=== PATIENT | female | born 1970 | race Caucasian/White ===

== ENCOUNTER 2017-01-24 18:24 | Observation (INO) ==
[2017-01-24] MEDS ORDERED: Aspirin 325 MG TABLET PO ONE (18:41)
--- NOTE | 2017-01-24 19:01 | Emergency Department Note ---
Disposition Clinical Impression: Unstable angina pectoris, Chest pain Disposition: Admitted As Inpatient Condition: Good Referrals: Pebbles Triana [Primary Care Provider] - Forms: ED Satisfaction Letter Time of Disposition: 20:00 Chest Pain HPI - General Chief Complaint: ED Chest Pain Stated Complaint: Chest pain, tingling in face and in left arm Time Seen by Provider: 01/24/17 18:37 Source: patient Limitations: no limitations Vital Signs Reviewed: Yes Nursing Notes Reviewed: Yes - History of Present Illness HPI Narrative: 46-year-old female presents him return for chest pain. Started last night. Intermittent today. Worse this afternoon. Associated nausea but no vomiting. Had some dyspnea and pressure in her chest. She also states the pressure radiates up into her neck and jaw region. She has some tingling feeling over her chest. She also has some pain in her upper back. She does not have a history of coronary disease. No history of any cardiac Or any stress test. No other complaints at this time. Pt complaint: chest pain Onset (ago): day(s) Duration: intermittent Onset: during rest Pain Location: substernal, left chest Severity: moderate Severity scale (1-10): 1 Quality: tightness, aching, heaviness Pain Radiation: back, neck, jaw/teeth Improves with: nothing Worsens with: nothing Associated symptoms: Reports: nausea, dyspnea. Denies: vomiting, diaphoresis, cough Treatments prior to arrival chest pain: none - Related Data Allergies Allergy/AdvReac Type Severity Reaction Status Date / Time No Known Allergies Allergy Verified 01/24/17 18:32 All systems ED: reviewed and negative except as stated. 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: bilateral 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, other - Social History Smoking Status: Never smoker Alcohol use: Reports: none Drug use: Reports: none Physical Exam - General Limitations: no limitations General appearance: alert, in no apparent distress - Head Head exam: atraumatic, normocephalic - Eye Eye exam: Present: normal appearance - ENT ENT exam: normal exam - Chest Chest inspection: Present: normal inspection, symmetric chest wall rise - Respiratory Respiratory exam: Present: normal lung sounds bilaterally - Cardiovascular Cardiovascular exam: Present: regular rate, normal rhythm, normal heart sounds - Abdominal Exam Abdominal exam: Present: soft, Non-Tender, normal bowel sounds - Extremities Exam Extremities exam: Present: normal inspection - Back Exam Back exam: Present: normal inspection - Neurological Exam Neurological exam: Present: alert, oriented X3 - Psychiatric Psychiatric exam: Present: normal affect, normal mood - Skin Skin exam: Present: warm, dry, intact Course Vital Signs Temperature 97.9 F 01/24/17 18:32 Pulse Rate 86 01/24/17 18:32 Respiratory Rate 18 01/24/17 18:32 Blood Pressure 150/90 01/24/17 18:32 O2 Sat by Pulse Oximetry 97 01/24/17 18:32 Temperature 97.9 F 01/24/17 18:32 Pulse Rate 86 01/24/17 18:32 Respiratory Rate 18 01/24/17 18:32 Blood Pressure 150/90 01/24/17 18:32 O2 Sat by Pulse Oximetry 97 01/24/17 18:32 Oxygen Delivery Oxygen Delivery Room Air Chest Pain - Medical Records Medical records reviewed: Yes I reviewed the patient's medical records. - Lab Data Lab results reviewed: Yes I reviewed the patient's lab results. Result diagrams: 01/24/17 19:25 01/24/17 19:25 Lab Results 01/24/17 01/24/17 01/24/17 Range/Units 19:25 19:25 19:25 WBC 9.2 (4.3-11.1) K/mcL RBC 5.16 H (3.82-4.97) M/mcL Hgb 15.9 H (11.5-15.4) g/dL Hct 46.0 H (35.3-44.9) % MCV 89.1 (83.0-100.0) fL MCH 30.8 (28.0-33.3) pg MCHC 34.6 (31.6-35.5) g/dL RDW 12.3 (11.5-14.5) % Plt Count 214 (140-400) K/mcL MPV 10.0 (9.4-12.4) fL Immature Gran % 0.8 (0-4) % Seg Neutrophils % 63.7 % Lymphocytes % 21.9 % Monocytes % 9.7 % Eosinophils % 2.7 % Basophils % 1.2 % Neutrophils # 5.8 (1.6-8.9) K/mcL Lymphocytes # 2.0 (0.6-4.6) K/mcL Monocytes # 0.9 (0.0-1.3) K/mcL Eosinophils # 0.3 (0.0-0.6) K/mcL Basophils # 0.1 (0.0-0.2) K/mcL PT 12.5 H (9.4-12.1) Seconds INR 1.2 APTT 28.8 (26.0-36.0) Seconds Sodium 136 (136-145) mEq/L Potassium 3.6 (3.5-4.5) mEq/L Chloride 97 L (98-109) mEq/L Carbon Dioxide 25 (19-29) mEq/L BUN 9 (7-20) mg/dL Creatinine 0.67 (0.57-1.11) mg/dL Est GFR ( Amer) > 60 (> 60) Est GFR (Non-Af Amer) > 60 (> 60) BUN/Creatinine Ratio 13 (6-26) Glucose 112 H (70-99) mg/dL Calculated Osmolality 281 (280-300) Calcium 10.5 (8.6-10.8) mg/dL Troponin I (0-0.03) ng/mL 01/24/17 Range/Units 19:25 WBC (4.3-11.1) K/mcL RBC (3.82-4.97) M/mcL Hgb (11.5-15.4) g/dL Hct (35.3-44.9) % MCV (83.0-100.0) fL MCH (28.0-33.3) pg MCHC (31.6-35.5) g/dL RDW (11.5-14.5) % Plt Count (140-400) K/mcL MPV (9.4-12.4) fL Immature Gran % (0-4) % Seg Neutrophils % % Lymphocytes % % Monocytes % % Eosinophils % % Basophils % % Neutrophils # (1.6-8.9) K/mcL Lymphocytes # (0.6-4.6) K/mcL Monocytes # (0.0-1.3) K/mcL Eosinophils # (0.0-0.6) K/mcL Basophils # (0.0-0.2) K/mcL PT (9.4-12.1) Seconds INR APTT (26.0-36.0) Seconds Sodium (136-145) mEq/L Potassium (3.5-4.5) mEq/L Chloride (98-109) mEq/L Carbon Dioxide (19-29) mEq/L BUN (7-20) mg/dL Creatinine (0.57-1.11) mg/dL Est GFR ( Amer) (> 60) Est GFR (Non-Af Amer) (> 60) BUN/Creatinine Ratio (6-26) Glucose (70-99) mg/dL Calculated Osmolality (280-300) Calcium (8.6-10.8) mg/dL Troponin I 0.00 (0-0.03) ng/mL - Radiology Data Radiology results reviewed: Yes I reviewed the patient's radiology results. - EKG Data EKG attestation: Yes I reviewed and interpreted this EKG. EKG results narrative: EKG shows a rate of 95. No sinus rhythm. Left axis. WA interval 161. QRS 92. QTC 4:15. PVCs present. No signs of acute ischemia otherwise. EKG shows normal: sinus rhythm
[2017-01-24 19:38] LABS: Basophils # 0.1 K/mcL (0.0-0.2); Basophils % 1.2 %; Eosinophils # 0.3 K/mcL (0.0-0.6); Eosinophils % 2.7 %; Hemoglobin 15.9 g/dL (11.5-15.4); Immature Granulocytes % 0.8 % (0-4); Lymphocytes % 21.9 %; Mean Corpuscular HGB Conc 34.6 g/dL (31.6-35.5); Mean Corpuscular Hemoglobin 30.8 pg (28.0-33.3); Mean Corpuscular Volume 89.1 fL (83.0-100.0); Monocytes # 0.9 K/mcL (0.0-1.3); Monocytes % 9.7 %; Neutrophils # 5.8 K/mcL (1.6-8.9); Platelet Count 214 K/mcL (140-400); Red Blood Count 5.16 M/mcL (3.82-4.97); Red Cell Distribution Width 12.3 % (11.5-14.5); Segmented Neutrophils % 63.7 %
[2017-01-24 19:44] LABS: INR 1.2; Prothrombin Time 12.5 Seconds (9.4-12.1)
[2017-01-24] MEDS ORDERED: Nitroglycerin 1 INCH/GM PACKET TP ONE (19:45)
[2017-01-24 19:47] LABS: Activated Partial Thrombo Time 28.8 Seconds (26.0-36.0)
[2017-01-24 19:52] LABS: BUN/Creatinine Ratio 13 (6-26); Blood Urea Nitrogen 9 mg/dL (7-20); Calcium 10.5 mg/dL (8.6-10.8); Carbon Dioxide 25 mEq/L (19-29); Chloride 97 mEq/L (98-109); Glucose 112 mg/dL (70-99); Osmolality,Calculated 281 (280-300); Potassium 3.6 mEq/L (3.5-4.5); Sodium 136 mEq/L (136-145); eGFR For African Americans > 60 (> 60); eGFR For Non-African Americans > 60 (> 60)
[2017-01-24] MEDS ORDERED: 0.9 % Sodium Chloride 1,000 ML IVC ONE (20:28)
[2017-01-25] MEDS ORDERED: Naloxone 0.4 MG/ML INJ IVP PRN (00:35)
[2017-01-25] MEDS ORDERED: Ondansetron 4 MG/2 ML VIAL IVP PRN (00:35)
[2017-01-25] MEDS ORDERED: *HR* Morphine 2 MG/ML SYRINGE IVP PRN (00:35)
--- NOTE | 2017-01-25 01:16 | Internal Med History&Physical ---
Date of Encounter: 01/25/17 Time of Encounter: 01:15 Assessment and Plan (1) Chest pain Current visit: Yes Status: Acute Atypical. No history of stress test or C - Trend troponin - Keep patient chest pain free - Stress test in AM Qualifiers: Chest pain type: unspecified Qualified Code(s): R07.9 - Chest pain, unspecified (2) HTN (hypertension) Current visit: Yes Status: Acute BP stable. - continue home meds Qualifiers: Hypertension type: essential hypertension Qualified Code(s): I10 - Essential (primary) hypertension Internal Medicine - H&P: HPI Chief complaint: Chest pain Admitted From: Emergency Dept Plans for Post Hospital Care: Home History of present illness: Ms. Crisostomo is a 46 year old female with history of HTN and anxiety who presented to the ER this evening with chest pain which has been present intermittently for the past 24 hours. The pain is substernal, pressure-like, and she is unable to identify any exacerbating factors. She took a dose of clonopin last night which did improve her symptoms but did not completely relieve them. The pain radiated to her back last night but today it did not. Her left arm was heavy yesterday and now both arms are tingly today. She also has chin and neck tingling which has been present intermittently over the past 24 hours. She has no history of cardiac disease. She had mild shortness of breath while walking into the ER. She has not been diaphoretic and has not had nausea. She has not had fever, but did feel chilled today. Past Med Surg Social Fam HX - Past Medical History Medical history: hypertension Psychiatric history: anxiety, depression - Past Surgical History Surgical History: no surgical history - Social History Smoking Status: Never smoker Smokeless Tobacco Status: No Alcohol use: none Drug use: none - Family History Father Hx Family Cardiac Disorders: Yes (AL, PACER/DEFIB, HTN) Internal Medicine - H&P: Meds Citalopram [CeleXA] 10 mg PO DAILY 01/24/17 [History] ClonazePAM [Klonopin] 0.5 mg PO BID PRN 01/24/17 [History] Levothyroxine [Synthroid] 25 mcg PO DAILY 01/24/17 [History] Lisinopril [Zestril] 2.5 mg PO DAILY 01/24/17 [History] Metoprolol 01/24/17 [History] Multivitamin [Multi-Day Vitamins] 1 each PO DAILY 01/24/17 [History] Allergies No Known Allergies Allergy (Verified 01/24/17 18:32) All Systems PM: A 10-system review of systems was performed and is negative for pertinent findings except as documented above in the HPI. - Constitutional Vitals: Temp Pulse Resp BP Pulse Ox 98.0 F 78 18 129/82 95 01/24/17 23:21 01/24/17 23:21 01/24/17 23:21 01/24/17 23:21 01/24/17 23:21 General appearance: Present: A&O X 3, no acute distress - Head Head exam: Present: atraumatic - Eye Eye exam: Present: EOMI, sclera anicteric - ENT ENT exam: Present: mucous membranes moist - Neck Neck exam general surgery: Present: supple - Respiratory Respiratory exam: Present: CTAB - Cardiovascular Cardiovascular exam: Present: RRR. Absent: diastolic murmur, gallop, rubs, systolic murmur - GI/Abdominal GI/Abdominal exam: Present: normal bowel sounds, soft. Absent: distended, tenderness - Extremities Exam Extremities exam: Absent: pedal edema - Neurological Exam Neurological exam: Present: no focal deficits - Skin Skin exam: Absent: rash Internal Med - H&P Results - Labs CBC & Chem 7: 01/24/17 19:25 01/24/17 19:25
[2017-01-25 02:00] LABS: BUN/Creatinine Ratio 13 (6-26); Blood Urea Nitrogen 9 mg/dL (7-20); Calcium 9.4 mg/dL (8.6-10.8); Carbon Dioxide 21 mEq/L (19-29); Chloride 102 mEq/L (98-109); Glucose 182 mg/dL (70-99); Osmolality,Calculated 285 (280-300); Sodium 136 mEq/L (136-145); eGFR For African Americans > 60 (> 60); eGFR For Non-African Americans > 60 (> 60)
[2017-01-25 05:45] LABS: Basophils # 0.1 K/mcL (0.0-0.2); Eosinophils # 0.2 K/mcL (0.0-0.6); Eosinophils % 1.8 %; Hematocrit 41.8 % (35.3-44.9); Hemoglobin 14.7 g/dL (11.5-15.4); Immature Granulocytes % 0.8 % (0-4); Lymphocytes # 2.2 K/mcL (0.6-4.6); Lymphocytes % 22.5 %; Mean Corpuscular HGB Conc 35.2 g/dL (31.6-35.5); Mean Corpuscular Hemoglobin 31.5 pg (28.0-33.3); Mean Corpuscular Volume 89.7 fL (83.0-100.0); Mean Platelet Volume 10.7 fL (9.4-12.4); Monocytes # 1.1 K/mcL (0.0-1.3); Monocytes % 11.2 %; Neutrophils # 6.1 K/mcL (1.6-8.9); Platelet Count 193 K/mcL (140-400); Red Blood Count 4.66 M/mcL (3.82-4.97); Red Cell Distribution Width 12.5 % (11.5-14.5); Segmented Neutrophils % 62.7 %
[2017-01-25] MEDS: Acetaminophen 325 MG TABLET PO PRN ×2 (09:47→16:02)
--- NOTE | 2017-01-25 11:45 | Electrocardiograph Report ---
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
--- NOTE | 2017-01-25 18:24 | Event Note ---
Date of Encounter: 01/25/17 Time of Encounter: 15:30 Patient seen and examined. On examination, patient sitting upright in bed watching television. Patient complaining of her chronic headache and continues to endorse chest pressure. She states her arms are still tingling but not as bad. She denies shortness of breath. Chest x-ray negative. 2 part stress test in progress. We will await results of second part for tomorrow. Mild elevation in her glucose noted, we will check an A1c. On examination, lungs clear to auscultation bilaterally. 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 Patient stating she has had episodes before in which she had chest pressure and tingling in her arms but she stated that these were anxiety attacks. She states that this one was worse than usual but states she is concerned that this might have also been an anxiety attack. We will rule out acute coronary syndrome. ITS Impressions Chest X-Ray 01/24/17 18:41 IMPRESSION: No acute process. D/ / Ashley Rapp MD / Ashley Rapp MD Interpreting Provider: Ashley Rapp MD
[2017-01-26 05:39] LABS: Hemoglobin A1C 5.9 %
[2017-01-26] MEDS: Acetaminophen 325 MG TABLET PO PRN ×2 (06:09→14:45)
--- NOTE | 2017-01-26 11:38 | Nuclear Medicine Stress Report ---
Exercise Nuclear Stress 2 day Name: Hoa Crisostomo Date of Study: 01/25/2017 Date: 1970 Ht: 63.0 in Medical Record#: [id number] Age: 46 Wt: 253.0 lb Gender: Female Order #: [id number] Location: [facility] IP Room: [facility] Supervising Provider: Geovany Guzman CNP Reading Physician: Ramin Robles DO, FACTom, CANDELARIO YEAGER Ordering Physician: Chanel Ziegler CNP Primary Care Physician: Pebbles Triana CNP Stress Technologist: Jason Ware, PRODUCTION SUPERVISOR OFF SHIFT, CCT Home Health Speech Therapist: Han Jones Indications: Chest pain Impression: Exercise ECG is negative for ischemia. Chest pain reported prior to (4/10) and during exercise (5/10). Gated EF = 62%. Perfusion imaging was negative for ischemia or infarct. History: Hypertension Stress Test Summary: Stress Test Type: Treadmill Protocol: Fernando Baseline Information: Initial Heart Rate: 102 Blood Pressure: 140/84 Stress Information: Stress Time: 6 min 00 sec Test Terminated Due to (primary): Dyspnea Maximum Blood Pressure: 166/90 Maximum Heart Rate: 153 Percent Maximum Heart Rate Achieved: 88 Double Product: 25,398 METS Reached: 7 Nuclear Summary: SPECT myocardial perfusion imaging using Tc99m Sestamibi given intravenously was performed at rest and following cardiac stress testing. The resting images were obtained following initial dose of 34.9 mCi. Following stress an additional dose of 33.9 mCi was given at peak exercise or 30 seconds post regadenoson infusion. Medication Given: Time Medication Dose Units Route Findings: Stress Note * Resting ECG demonstrated normal sinus rhythm. * No baseline arrhythmias were noted. * Exercise ECG is negative for ischemia. * No arrhythmias were noted during stress. * The exercise capacity was fair. * Chest pain reported prior to (4/10) and during exercise (5/10). * Normal hemodynamic responses to exercise. Study Quality * Study quality is average. Gated EF % * Gated EF = 62%. Left Ventricle * The left ventricle is not dilated. LVEDV = 107 mL. NORMALS * Normal wall motion. * Normal segmental perfusion in rest. * Normal segmental perfusion in stress. TID * No evidence of transient ischemic dilatation. TID ratio = 0.93. Lung Uptake * There is no evidence of increase lung uptake. Updated by Ramin Robles DO, CADEN, TOY, CANDELARIO on 01/26/2017 11:32:17 AM electronically signed on 01/26/2017 11:34:15 AM with status of Final
[2017-01-26 15:27] VITALS: BP 121/87
--- NOTE | 2017-01-26 15:55 | Discharge Summary ---
Date of Encounter: 01/26/17 Time of Encounter: 14:00 - Discharge Diagnosis (1) Chest pain Priority: Primary Status: Resolved Comments: Patient denied chest pain throughout the admission. Chest x-ray negative. Troponins negative. 2 day stress test negative for ischemia or infarct and revealed an ejection fraction of 62%. Upon further discussion with the patient , she has a history of anxiety attacks that were consistent with this type of attack. She also has reflux that is uncontrolled, recommend daily PPI and follow-up outpatient Qualifiers: Chest pain type: unspecified Qualified Code(s): R07.9 - Chest pain, unspecified (2) HTN (hypertension) Priority: Secondary Status: Chronic Comments: Borderline hypertensive upon arrival, normotensive throughout this admission. At home, patient is on metoprolol 50 mg at bedtime and lisinopril 20 mg HCTZ 12.5 mg daily. Of note, patient was not given any antihypertensive medications during her brief one night stay and she remained normotensive. No changes will be made to these medications but she has been instructed to check her blood pressure daily at home, keep a log, and follow-up with her primary care provider. Qualifiers: Hypertension type: essential hypertension Qualified Code(s): I10 - Essential (primary) hypertension (3) Morbid obesity with BMI of 40.0-44.9, adult Priority: Secondary Status: Chronic (4) Anxiety Priority: Secondary Status: Chronic (5) Acid reflux Priority: Secondary Status: Chronic Comments: Frequently takes Tums, PPI started (6) Anxiety attack Priority: Primary Status: Resolved - Discharge Medications Prescriptions: Omeprazole [PriLOSEC] 20 mg PO DAILY #30 cap Home Medications: Citalopram [CeleXA] 40 mg PO DAILY 01/24/17 [History] ClonazePAM [Klonopin] 0.5 mg PO BID PRN 01/24/17 [History] Levothyroxine [Synthroid] 125 mcg PO DAILY 01/24/17 [History] Metoprolol [Lopressor] 50 mg PO HS 01/24/17 [History] Multivitamin [Multi-Day Vitamins] 1 tab PO DAILY 01/24/17 [History] Lisinopril/Hydrochlorothiazide [Zestoretic 20-12.5 mg Tablet] 1 tab PO DAILY [History] Omeprazole [PriLOSEC] 20 mg PO DAILY #30 cap 01/26/17 [Rx] Allergies/Adverse Reactions: Allergies No Known Allergies Allergy (Verified 01/24/17 18:32) Procedures/tests Complete & Pending: Procedures Performed prior 72 hours Category Date Time Status NM jim perf SPECT multi [NM] Routine Exams 01/25/17 00:37 Taken SP exercise nuclear stress Routine Y 01/25/17 07:00 Completed Date of admission: 01/24/17 21:16 Primary care physician: Pebbles Triana Discharging clinician: Chanel Selby Anticipated date of discharge: 01/26/17 - Patient Status Disposition: Home, Self-Care Condition: Good Functional capacity at discharge: independent ambulation Overall status at discharge: patient is back to baseline - Discharge Instructions Follow Up With: Pebbles Triana [Primary Care Provider] - Additional Instructions: Follow-up with primary care provider within one to 2 weeks, check blood pressure daily and keep a log - Diet and Activity Activity: increase activity as tolerated Diet: low fat, low cholesterol, low salt diet Hospital course: Ms. Crisostomo is a 46 year old female with past medical history of hypertension, anxiety, morbid obesity. Patient presented to the emergency department chief complaint of chest pain intermittently over the past 24 hours prior to presentation. Pain is substernally located, pressure-like and the patient was unable to identify any exacerbating factors. She took a dose of Klonopin which improved her symptoms but did not completely relieve them prompting her presentation to the emergency department. Patient stated the pain radiated to her back on the night prior to presentation but not on the day of presentation. Patient also stating her arms were heavy and tingly. Workup in the emergency department unremarkable. Chest x-ray negative. Patient was admitted to the hospitalist service for further evaluation and management. Patient had a 2 day nuclear stress test that was negative for ischemia or infarct. Ejection fraction 62%. Acute coronary syndrome ruled out. Upon further discussion with the patient, she has had episodes similar to this that were consistent with a panic attack. She also has uncontrolled reflux. She was started on PPI and directed to follow up outpatient. Of note, patient was not on any of her antihypertensive medications during this brief inpatient stay and she remained normotensive, no changes made in her medication at this time, will defer to her primary care team. She is discharged home in stable condition with close outpatient follow-up recommended. ITS Impressions Chest X-Ray 01/24/17 18:41 IMPRESSION: No acute process. D/ / Ashley Rapp MD / Ashley Rapp MD Interpreting Provider: Ashley Rapp MD 2 day exercise nuclear stress test impression: Exercise ECG is negative for ischemia. Chest pain reported prior (C4/10) and during exercise (5/10). Gated EF equals 62%. Perfusion imaging was negative for ischemia or infarct. - Time Spent with Patient Total time spent providing and/or coordinating discharge services: - Constitutional Vitals: Temp Pulse Resp BP Pulse Ox 98.0 F 74 16 121/87 98 01/26/17 15:27 01/26/17 15:27 01/26/17 15:27 01/26/17 15:27 01/26/17 15:27 General appearance: Present: A&O X 3, morbidly obese, pleasant, no acute distress, answers questions appropriately - Head Head exam: Present: atraumatic, normocephalic - Eye Eye exam: Present: PERRL, conjuntiva pink, sclera anicteric Pupils: Present: PERRL - Neck Neck exam general surgery: Present: supple, trachea midline. Absent: lymphadenopathy - Respiratory Respiratory exam: Present: CTAB. Absent: accessory muscle use, rales, respiratory distress, rhonchi, wheezes - Cardiovascular Cardiovascular exam: Present: RRR, +S1, +S2. Absent: diastolic murmur, gallop, rubs, systolic murmur - GI/Abdominal GI/Abdominal exam: Present: normal bowel sounds, soft, no peritoneal signs. Absent: distended, tenderness - Extremities Exam Extremities exam: Present: warm, radial pulses palpable and symetrical. Absent : calf tenderness, cyanotic, pedal edema - Neurological Exam Neurological exam: Present: alert, CN II-XII intact, normal gait, oriented X3, no focal deficits, strengths equal and symetr throughout. Absent: pronater drift, facial droop, speech deficit - Skin Skin exam: Present: dry, intact, normal color, warm
== END 2017-01-26 17:13 | disposition home or self-care (01) ==
LOC: EMEROO 18:24 → 3BNU 18:24
PROVIDERS: ADMIT Internal Medicine; ATTEND Nurse Practitioner Family